=== PATIENT | female | born 1945 | race Caucasian/White ===

== ENCOUNTER 2020-10-13 19:51 | Inpatient (IN) | payer OTHER, BC ==
[~2020-10-13] VITALS: Ht 172.7 cm; Wt 79.8 kg
--- NOTE | ~2020-10-13 | EMS ---
[address] [address] EMS Patient Care Report Name: CESAR KRAUSE Room #: 170-9 ADM IN M.R.#: [id number] Admission: 10/13/20 Attend Phys: Jf Shabazz MD Discharge: Date of : 43 Report #: [id number] THIS REPORT FOR: //name// Report Transmitted: 10/13/2020 21:21 EMS Care Summary [facility] MED-ACT Incident [id number] @ 10/13/2020 19:20 Incident Location [address] [place] [address] Patient CESAR KRAUSE Female, 75 Years 1945 Patient Address [address] [place] [address] Patient History Other,Dementia,Osteoporosis,Osteoarthritis, Patient Allergies Hydrocodone,Iodine, Patient Medications Loperamide, Bisacodyl, Aspirin, Acetaminophen, Rosuvastatin, Quetiapine, Donepezil, Amoxicillin, Chief Complaint 2 falls within 24 hours. Possible hip pain Disposition Transported No Lights/[place] Dispatch Reason Falls Transported To [facility] Narrative [id number] responded to a memory care fdc for a pt who reported fell. [address] [address] EMS Patient Care Report Name: CESAR KRAUSE Room #: 170-9 ADM IN M.Mattie.#: [id number] Admission: 10/13/20 Attend Phys: Jf Shabazz MD Discharge: Date of : 43 Report #: [id number] Pt was found seated in her wheelchair with staff and family at her side. Airway) open/clear. Breathing) full, unlabored. Circulation) pink, warm, dry. Pt is tracking on EMS arrival and does not appear to be in any distress. Pt's son states the pt has suffered two falls within the last approx 24 hours. He states this evening when he assisted her in standing she appeared to "baby the R leg." He states she appeared to not want to place her weight on it at all. Staff states both falls were unwitnessed but appeared to be low impact falls from a chair or this last time from her toilet seat. Both times she has had no obvious deformity or pain. No noted loss of consciousness. Pt does not take a blood thinner. Staff and pt's son states the pt usually walks unaided albeit slowly. Both deny any recent issues with the pt's strength or balance. When asked about the pt's mentation son describes her dementia as severe to the point at best she is alert to self but more often is unable to state where she might be having discomfort. Staff and son confirm the pt's current presentation and speech are her normal. Son requests the pt be transport for assessment of the hip and because of the multiple falls. EMS attempted to assist the pt from her wheelchair. She exclaims but does not state where she is hurting. Pt exhibits no painful response on palp of her neck, back, shoulders, arms, chest, abd, hips or thighs. No shortening or rotation is noted to the pt's lower ext. Pt was then again assisted to a standing position. Pt does not exclaim, grimace or make any other indication of discomfort. Pt is able to stand on her own and appears to place equal weight on each leg. Pt was assisted in sitting on cot, placed in position of comfort and secured. Pt was moved to [facility]. Treatment: V/S, Transport: Pt had no change in her LOC en route. V/S as above. Pt was team lifted from cot to ER bed. Pt report given to receiving RN. Initial Vitals @19:45P: 77,BP: 104/51,SpO2: 90, @19:37P: 80,R: 12,BP: 127/72,Pain: 0/10,GCS: 13,Temp: 98.6F,SpO2: 93,Revised Trauma: 12, Assessments @19:27MENTAL:Confused,Person Oriented,SKIN:HEENT:Head/Face: No Abnormalities,LUNG SOUNDS:General: No Abnormalities,ABDOMEN:General: No Abnormalities,PELVIS//GI:No Abnormalities,EXTREMITIES:Left Arm: No Abnormalities,Right Arm: No Abnormalities,Left Leg: No Abnormalities,Right Leg: No Abnormalities,PULSE:NEURO:No Abnormalities, Impression Extremity Pain [address] [address] EMS Patient Care Report Name: CESAR KRAUSE Room #: 170-9 ADM IN M.R.#: [id number] Admission: 10/13/20 Attend Phys: Jf Shabazz MD Discharge: Date of : 43 Report #: [id number] Timeline 19:18,Call Received 19:18,Psap Call 19:20,Dispatched 19:20,En Route 19:24,On Scene 19:26,At Patient 19:35,Depart Scene 19:37,BP: 127/72 M,PULSE: 80,RR: 12 R,SPO2: 93 Ox,ETCO2: ,BG: ,PAIN: 0,GCS: 13, 19:45,BP: 104/51 M,PULSE: 77,RR: R,SPO2: 90 Ox,ETCO2: ,BG: ,PAIN: ,GCS: , 19:48,At Destination 19:57,Call Closed Disclaimer v1.1 Copyright 2020 [employer] This EMS Care Summary contains data elements from the applicable legal record (which may be displayed differently). It is designed to provide pertinent information for the following purposes: continuity of care, clinical quality, and state data reporting. The complete legal record is available to ED staff and administrators of the receiving hospital in [employer] Patient Tracker. All data is provided "as is."
[2020-10-13 19:53] VITALS: BP 137/65
[2020-10-13 20:38] LABS: ABSOLUTE NEUTROPHILS 9.1 thou/uL (1.4-8.2); BASOPHILS 0.5 % (0.0-2.0); HEMATOCRIT 35.1 % (37.0-47.0); HEMOGLOBIN 11.5 gm/dL (12.0-15.0); LYMPHOCYTES 11.1 % (24.0-44.0); MCH 28.3 pg (26.0-34.0); MCHC 32.7 g/dL (28.0-37.0); MCV 86.8 fL (80.0-100.0); MONOCYTES 8.9 % (1.0-8.0); PLATELET COUNT 211 thou/uL (150-400); POLYS 79.5 % (36.0-66.0); RBC 4.04 mil/uL (4.20-5.00); RDW 14.6 % (10.5-14.5); WBC 11.4 thou/uL (4.0-11.0)
[2020-10-13 20:44] LABS: URINE BILIRUBIN NEGATIVE (Negative); URINE BLOOD 3+ (Negative); URINE CLARITY CLOUDY; URINE COLOR YELLOW; URINE GLUCOSE-RANDOM* NEGATIVE (Negative); URINE KETONES NEGATIVE (Negative); URINE PROTEIN (DIPSTICK) 2+ (Negative); URINE SPECIFIC GRAVITY >= 1.030 (1.005-1.035); URINE UROBILINOGEN 0.2 E.U./dl (0.2-1.0)
[2020-10-13 20:46] LABS: ANION GAP 8 mmol/L (7-16); BUN 21 mg/dL (7-18); CALCIUM 8.5 mg/dL (8.5-10.1); CHLORIDE 105 mmol/L (98-107); CO2 28 mmol/L (21-32); CREATININE 1.6 mg/dL (0.6-1.0); GLUCOSE 159 mg/dL (74-106); POTASSIUM 3.5 mmol/L (3.5-5.1); SODIUM 141 mmol/L (136-145)
[2020-10-13 20:47] LABS: URINE LEUKOCYTES-REFLEX 2+ (Negative); URINE NITRITE-REFLEX POSITIVE (Negative)
[2020-10-13 20:56] LABS: ALBUMIN 3.2 g/dL (3.4-5.0); SGOT 15 U/L (15-37); SGPT 16 U/L (14-59); TOTAL BILIRUBIN 0.5 mg/dL (0.2-1.0); TROPONIN-I <0.06 ng/mL (<0.06)
[2020-10-13 21:06] LABS: BACTERIA-REFLEX >30 Many /HPF (None Seen); SQUAMOUS 4-10 Moderate /LPF (0-3); URINE RBC >20 Many /HPF (NONE SEEN); URINE WBC-REFLEX >25 Many /HPF (0-5)
[2020-10-13 21:07] LABS: COARSE GRANULAR CASTS 0-3 Few /LPF (None Seen); HYALINE CASTS 0-3 Few /LPF (None Seen)
[2020-10-13] MEDS ORDERED: ACETAMINOPHEN325 M1 PO (22:39)
[2020-10-13] MEDS ORDERED: ALPRAZOLAM 0.0.25 MG PO (22:40)
[2020-10-13] MEDS ORDERED: ARICEPT10 MG PO (22:41)
[2020-10-13] MEDS ORDERED: ASA81BEC PO (22:41)
[2020-10-13] MEDS ORDERED: BISACODYL10 MG RECTAL (22:41)
[2020-10-13] MEDS ORDERED: AMOXICILLIN 50500 MG PO (22:41)
[2020-10-13] MEDS ORDERED: MILK OF MA400 MG/5 M PO (22:42)
[2020-10-13] MEDS ORDERED: LOPERAMIDE2 MG PO (22:42)
[2020-10-13] MEDS ORDERED: ROSUVASTATIN CA20 MG PO (22:43)
[2020-10-13] MEDS ORDERED: SEROQUEL 25 MG25 MG PO (22:43)
[2020-10-13] MEDS ORDERED: MYLANTA MAXIMU355 ML PO (22:43)
[2020-10-14 16:16] VITALS: BP 139/62
--- NOTE | 2020-10-14 16:30 | NUR ---
UPON RECIEVING PATIENT ON SOUTH SIDE TO RM 17, PATIENT HAS NO IV IN PLACE.
[2020-10-14 16:52] VITALS: BP 134/79
[2020-10-14 19:30] VITALS: BP 130/71
--- NOTE | 2020-10-14 20:21 | NUR ---
PT ARRIVED TO UNIT FROM ED APPROX 1745. TELE ON, PT SETTLED IN ROOM. PT REFUSING CARES. SITTER PRESENT IN ROOM. REPORT PASSED TO LUCERO JENKINS.
--- NOTE | 2020-10-15 03:40 | NUR ---
PT AGGITATED AND REFUSING IV REPLACEMENT, MEDS, TURNING, JUST WANTS TO SLEEP, WITH MUCH ENCOURAMENT ABLE TO GET PT TO SWALLOW 2 PO MEDS WITH A BITE OF PUDDING, JIMENEZ WITH CLOUDY YELLOW URINE, PT NEEDS CONSTANT REMINDER TO NOT PULL AT JIMENEZ, SITTER IN ROOM, VSS, DENIES PAIN, WILL CON'T TO MONITOR PER PPOC.
[2020-10-15 03:58] LABS: HEMATOCRIT 32.6 % (37.0-47.0); HEMOGLOBIN 10.7 gm/dL (12.0-15.0); MCH 28.3 pg (26.0-34.0); MCHC 32.8 g/dL (28.0-37.0); MCV 86.2 fL (80.0-100.0); RBC 3.78 mil/uL (4.20-5.00); WBC 10.3 thou/uL (4.0-11.0)
[2020-10-15 04:12] LABS: POTASSIUM 3.3 mmol/L (3.5-5.1)
[2020-10-15 05:07] VITALS: BP 123/64
[2020-10-15 15:43] VITALS: BP 158/80
[2020-10-15 17:05] VITALS: BP 117/57
[2020-10-15 19:43] VITALS: BP 152/84
--- NOTE | 2020-10-15 19:50 | NUR ---
ASSESSMENT CHARTED - MEDS PER MAY - PT GIVEN ZYPREXA AND GEODON IM TODAY DUE TO PT BEING COMBATIVE - KICKING PUNCHING AND SLAPPING AT STAFF. MEDS WORK WITH MIN EFFECT - PATIENT WOULD SETTLE FOR A WHILE AND WHEN ATTMEPTED TO PLACE IV PT WOULD WAKE UP AND BE COMBATIVE AND CLIMBING OUT OF THE BED. NOTIFIED AND PATIENT PLACED IN SOFFT WRIST RESTAINTS - WE WERE THEN ABLE TO HAVE IV PLACED AND GIVEN IV FLUIDS AND ANTIBIOTICS. PT HAS REFUSED TO TAKE ALL PO MEDS THIS SHIFT I WAS ABLE TO GET HER TO TAKE A CRUSHED A RESPERIODOL PLACED IN A SMALL BITE OF PUDDING. PT HAS NOT EATEN WELL SINCE BREAKFAST - REFUSING TO EAT. PT HAS HAD SITTER IN THE ROOM WITH HER THIS SHIFT ATTEMPTING TO KEEP HER CALM. PT SONS LISTED ALEXANDRIA AND MADDY WERE NOTIFIED THAT PATIENT HAD BEEN PLACED IN RESTRAINTS. [place] UP TO SEE PATIENT THIS EVENING. PT REATING QUIETLY AT THE PRESENT TIME. PT DOES EASILY BECOME AGGITATED AT TIMES. SITTER REMAINS IN ROOM.
[2020-10-16 06:21] VITALS: BP 121/61
[2020-10-16 08:20] VITALS: BP 132/63
--- NOTE | 2020-10-16 12:21 | NUR ---
Assess due to low chuy score. Admit from facility with UTI, dementia, and aggression. Had been refusing po. Unable to answer questions. Unknown wt changes. On IVF. Will initiate oral supplements then followup on 10/18 to determine if pt starting to eat, then complete nutrition evaluation.
--- NOTE | 2020-10-16 12:37 | NUR ---
FAXED CLINICAL UPDATES TO [facility] IN [place] WITH NOTATION THAT PATIENT WILL POSSIBLY DISCHARGE TOMORROW, 10/17/20. WILL CONFIRM THEY RECEIVED. [facility] PV P [phone]; FAX [phone]
[2020-10-16 15:59] VITALS: BP 142/65
--- NOTE | 2020-10-16 19:30 | NUR ---
ASSESSMENT CHARTED - ONLY PO MEDICATION GIVEN TO IN RESPERIODOL WITH LOTS ON ENCOURAGMENT TO TAKE. PLACED IN PUDDING AND PT TOLD PUDDING WAS ESPECIALLY MADE FOR HER AND SHE WILL USUALLY EAT A FEW BITS - REFUSED BREAKFAST - ATE WELL FOR LUNCH AND DINNER - SEEN BY PHYS THERAPY UP TO THE CHAIR - KYLEE WELL - AMBULATED IN THE HALLS WITH GAIT BELT - PT WOULD TIP TO THE SIDE FROM TIME TO TIME ND HAVE TO BE STRAIGHTENED UP AGAIN. AT TIMES PT BECAME AGGITATED AND ATTEMPTED TO GET OUT OF THE BED, PT GIVEN PRN AGGITATION MED X 1 WITH GOOD RELIEF. PT RESTING AT THE PRESENT TIME.
[2020-10-16 20:00] VITALS: BP 159/78
--- NOTE | 2020-10-17 03:19 | NUR ---
ALERT AND ORIENTED X2 BUT FORGETFULL. COMPLAINS OF ABDOMINAL PAIN. AND ANXIOUS AT TIMES. ASSIST TO BSC. PASSED GAS AND 2 LOOSE BOWEL MOVEMENTS THIS SHIFT. ABDOMEN IS SOFT BOWEL SOUNDS ACTIVE. IS ON 6 LITERS NASAL CANULA O2 SAT 90-91. CLEAR LIQUIDS GIVEN TO PT PER REQUEST. CALL LIGHT WITHIN REACH IF NEEDS ASSISTANCE PER NURSING .
[2020-10-17 03:22] VITALS: BP 165/61
--- NOTE | 2020-10-17 03:23 | NUR ---
PT IS CONFUSED . CAN BE RESTLESS AT TIMES. HAS HISTORY OF DEMENTIA AND ALZHEIMERS WITH DELERIUM. IS CURRENTLY IN RESTRAINTS FOR PT SAFETY AT THIS TIME. LUNGS ARE CLEAR ON ROOM AIR. JIMENEZ TO DD WITH YELLOW URINE PRESENT. TAKES MEDS WITH PUDDING. WILL CONTINUE TO MONITOR AND ASSESS PER NURSING AT THIS TIME.
[2020-10-17 08:20] VITALS: BP 138/70
--- NOTE | 2020-10-17 09:02 | NUR ---
Case opened to follow for dc planning. Pt is alert and oriented to self only. Assessment completed with pt's son/dpdany Lovelace via phone yesterday. He indicates that she is a resident at [facility] memory care unit as of a week ago. She is indep with gait and needs supervision for meds and adl's. She has alzh dementia. He can bring her dpoa for hc if needed and [facility] also has a copy. [employer] spoke with the admin Maximus at [facility] and they are holding her bed. Martin Lovelace will transport via car at [facility]. The pt has had two covid vaccines earlier this year. She is being treated for UTI and REBECCA. Kamara in place. Pt with soft wrist restraints due to pulling at her IV. Therapy evals are pending. Cultures are pending. Dc possible today or tomorrow. Martin Lovelace updated and available as needed. He has also spoken with Maximus regarding communication issues at the facility. Dc plan at this time is to return to the [facility] memory care at [facility].
[2020-10-17 15:17] VITALS: BP 149/65
[2020-10-17 19:25] VITALS: BP 150/74
--- NOTE | 2020-10-18 03:28 | NUR ---
PT IS CONFUSED HX OF DEMENTIA AND ALZHEIMERS WITH DELERIUM. CAN BE COMBATIVE AND PUT LEGS OVER SIDE RAILS OF BED IN RESTRAINTS FOR PT SAFETY AT THIS TIME. TAKES MEDS IN PUDDING AND CRUSHED. LUNGS ARE CLEAR. ON ROOM AIR. ABDOMEN IS ROUND AND BOWEL SOUNDS ACTIVE X4. NO PAIN NOTED. WILL CONTINUE TO ASSESS AND MONITOR PER NURSING
[2020-10-18 06:05] VITALS: BP 138/91
[2020-10-18 08:00] VITALS: BP 155/74
[2020-10-18 12:00] VITALS: BP 140/67
[2020-10-18 16:00] VITALS: BP 163/71
--- NOTE | 2020-10-18 18:11 | NUR ---
Pt out of restraints today and up walking with therapy. They may recommend a walker at the facility. Weekend staff to call [facility] memory care unit if dc ready tomorrow and call son to transport. Chart copy needed for the facility. [facility] [phone] phone, fax [phone] for orders. Pt still on iv atb and will need to be on po to return to the [facility] memory care unit.
[2020-10-18 19:31] VITALS: BP 170/76
--- NOTE | 2020-10-19 03:27 | NUR ---
ASSESSMENT: PT REMAIN ALERT AND ORIENT TIMES ONE. DOES NOT FOLLOW SIMPLE COMMANDS. VSS, AFEBRILE. MED SURG STATUS. CURRENTLY HAS A 1:1 SITTER. TOLERTING PO INTAKE. HAD A SMALL BM THIS SHIFT. RESPRIDOL AND ZYPREXIA GIVEN PRIOR TO SITTER ARRIVING. NO RESTRAINTS APPLIED. POOR PROGRESS TOWARDS DC GOALS, WILL CONTINUE TO MONITOR.
[2020-10-19 03:38] VITALS: BP 164/69
[2020-10-19 07:19] VITALS: BP 157/80
[2020-10-19] MEDS ORDERED: Cephalexin 500 MG Ca PO (10:19)
[2020-10-19] MEDS ORDERED: PROTONIX 20 MG20 M1 PO (10:20)
[2020-10-19] MEDS ORDERED: ALPRAZOLAM 0.0.25 MG PO (10:21)
[2020-10-19 15:47] VITALS: BP 114/68
[2020-10-20 04:12] VITALS: BP 184/85
[2020-10-20 08:00] VITALS: BP 171/88
[2020-10-20 15:30] VITALS: BP 112/72
[2020-10-20 19:40] VITALS: BP 153/87
[2020-10-21 05:18] VITALS: BP 166/85
[2020-10-21 08:00] VITALS: BP 146/72
[2020-10-21 12:00] VITALS: BP 159/81
[2020-10-21 12:32] LABS: CALCIUM 8.9 mg/dL (8.5-10.1); CREATININE 0.8 mg/dL (0.6-1.0); POTASSIUM 4.2 mmol/L (3.5-5.1)
--- NOTE | 2020-10-21 15:49 | NUR ---
ASSUMED CARE AT SHIFT CHANGE THIS AM. PT ALERT TO SELF AND CAN ANSWER SOME YES AND NO QUESTIONS OCCASIONALLY. CONFUSED AND IMPULSIVE THROUGHOUT THE DAY. ATE LUNCH WELL IN CHAIR. TOOK MEDS CRUSHED WITH PUDDING. WALKED WITH THERAPY AROUND THE [facility] WITH WALKER WITH GOOD ENDURANCE. POSSIBLE DC BACK TO [facility] TODAY IF FACILITY WILL TAKE PT IN CURRENT ORIENTATION SINCE PT IS ALREADY ON MEMORY CARE UNIT. PO ANTIBX CONTINUE FOR UTI. INCONTINENT X 1 AND UP TO BSC X 1 TODAY WITH NA. WILL CONT TO MONITOR AND FOLLOW POC.
[2020-10-21 16:37] VITALS: BP 116/56
--- NOTE | 2020-10-21 17:24 | NUR ---
spoke with son Radu regarding skilled care. Son reports he questions if patient could return to her assisted living memory care. Wants consistant enviroment for patient. Spoke with Chet Infante. Faxed clinical update and therapy nate. Requested their RN sp with [facility] RN. They did speak and Chet reports patient weaker and best for post acute care. Sp with son Radu who is in agreement if best. Emailed senior living list. He plans to sp with his brother and then update casemgt first in am.
[2020-10-21 19:55] VITALS: BP 146/77
--- NOTE | 2020-10-22 03:59 | NUR ---
PT IS CONFUSED. PT HAS DEMENTIA AND ALZHIMERS HISTORY. LUNGS ARE CLEAR. ON ROOM AIR. ABDOMEN IS SOFT AND ROUND. PT IS IMPULSIVE AT TIMES. FREQUENT ROUNDING ON PT. CALM AFTER BEDTIME MEDS GIVEN TO PT. BED ALARM ON DUE TO HIGH FALL RISK AT THIS TIME. ONGOING NURISNG CARE AT THIS TIME.
[2020-10-22 08:56] VITALS: BP 153/71
--- NOTE | 2020-10-22 11:55 | NUR ---
pt up in med, call light with in reach, pt confused at times, by nurses station, with in view. No distress.
--- NOTE | 2020-10-22 13:56 | NUR ---
ON-GOING ASSESSMENT: CM REVIEWED CHART. SW SPOKE WITH FAMILY AND REQUEST REFERRALS TO SNF FOLLOWS: 1. [facility]- REFERRAL SENT AND VM LEFT WITH ADMISSIONS 2. [facility]: REFERRAL SENT AND LIASINAN LORENZ NOTIFIED 3. [facility] Dering HallSukhjinder ([facility]): REFERRAL SENT AND SPOKE WITH TRACY IN ADMISSIONS AND SHE IS REVIEWING.
[2020-10-22 16:00] VITALS: BP 145/65
--- NOTE | 2020-10-22 18:48 | NUR ---
pt resting in bed, call light with in reach, pt attempt to get out of bed at times, redirected, pt resting. no distress
[2020-10-22 19:23] VITALS: BP 143/78
[2020-10-23 04:19] VITALS: BP 124/41
--- NOTE | 2020-10-23 04:23 | NUR ---
PT IS CONFUSED AND IMPULSIVE. TRIES TO GET OUT OF BED FREQUENTLY ROUNDING NOTED FOR PT SAFETY. LUNGS ARE CLEAR ON ROOM AIR. BOWEL SOUNDS POSITIVE X4 AND SOFT. NO PAIN NOTED. PT HAS A HISTORY OF DEMETIA AND ALZHEIMER WITH DELERIUM. BED ALARM ON FOR PT SAFETY. CALL LIGHT WITHIN REACH BUT PT DOESNT USE IT. SO FREQUENT ROUNDS REQUIRED PER NURSING . ONGOING NURSING CARE AT THIS TIME.
--- NOTE | 2020-10-23 06:35 | NUR ---
BLADDER SCAN THIS AM NO VOID NOTED SCAN LESS THAN 313 SO DID NOT STRAIGHT CATH AT THIS TIME WILL CONTINUE TO ASSESS PER NURSING
[2020-10-23 08:15] VITALS: BP 142/69
--- NOTE | 2020-10-23 14:40 | NUR ---
spoke with son last evening and he reports just pick 3 other places and send referrals. Report [facility] skilled [facility]hab unit if he was agreeable to referral to [facility]. He was agreeable. faxed clinical information. Sp with admissions. They are accepting of patient for skilled care. Son in agreement. [facility] for 1600. Chart copied. Orders faxed RN has number for report. Son agreeable. Spoke with Arabella at [facility] to alert of patient dc plan.
[2020-10-23 15:06] VITALS: BP 121/55
== END 2020-10-23 18:15 | DRG 682 ==
LOC: ER 19:51 → EROBS 21:23 → ER 21:23 → 2N 10-14 15:12 → EROBS 10-14 15:12 → 2N 10-14 17:34
PROVIDERS: Internal Medicine; Nurse Practitioner Family; Physician Assistant; ADMIT Internal Medicine; ATTEND Internal Medicine
DX: N17.0 Acute kidney failure with tubular necrosis (principal); G93.41 Metabolic encephalopathy; N39.0 Urinary tract infection, site not specified; R78.81 Bacteremia; F23 Brief psychotic disorder; E46 Unspecified protein-calorie malnutrition; F02.81 Dementia in other diseases classified elsewhere, unspecified severity, with behavioral disturbance; R65.10 Systemic inflammatory response syndrome (SIRS) of non-infectious origin without acute organ dysfunction; Z20.822 Contact with and (suspected) exposure to COVID-19; M19.90 Unspecified osteoarthritis, unspecified site; M81.0 Age-related osteoporosis without current pathological fracture; E78.5 Hyperlipidemia, unspecified; Z66 Do not resuscitate; R41.0 Disorientation, unspecified; B96.20 Unspecified Escherichia coli [E. coli] as the cause of diseases classified elsewhere; M25.551 Pain in right hip; D64.89 Other specified anemias; G30.9 Alzheimer's disease, unspecified; E87.6 Hypokalemia; R53.81 Other malaise; E86.0 Dehydration; Z68.26 Body mass index [BMI] 26.0-26.9, adult; W18.39XA Other fall on same level, initial encounter; Y93.89 Activity, other specified; Y92.89 Other specified places as the place of occurrence of the external cause; Y99.8 Other external cause status
CPT/HCPCS: 10081